=== PATIENT | female | born 1955 | race Two or more races ===

== ENCOUNTER 2017-08-14 09:43 | Emergency (ER) | payer BC, OTHER ==
[2017-08-14 10:18] VITALS: BP 135/84
--- NOTE | 2017-08-14 10:47 | UC ---
Respiratory Complaint HPI - HPI Summary HPI Summary: chest congestion x 2 days cough, nasal congestion no fever, no sob - History of Current Complaint Chief Complaint: UCRespiratory Stated Complaint: CONGESTION COUGH Time Seen by Provider: 08/14/17 10:35 Hx Obtained From: Patient Onset/Duration: Gradual Onset, Lasting Days - 2, Still Present Timing: Constant Severity Initially: Moderate Severity Currently: Moderate Character: Cough: Nonproductive Aggravating Factors: Deep Breaths Alleviating Factors: Nothing Associated Signs And Symptoms: Positive: URI, Nasal Congestion. Negative: Sinus Discomfort - Allergies/Home Medications Allergies/Adverse Reactions: Allergies Allergy/AdvReac Type Severity Reaction Status Date / Time Latex Allergy Itching Verified 08/14/17 10:18 Ciprofloxacin [From Cipro] AdvReac Diarrhea, Verified 08/14/17 10:18 Weakness Codeine AdvReac Nausea Verified 08/14/17 10:18 Home Medications: Home Medications Bergamot Oil 1 oil XX DAILY 08/14/17 [History Confirmed 08/14/17] Red Yeast Rice Extract [Red Yeast Rice] 300 mg PO DAILY 08/14/17 [History Confirmed 08/14/17] Vitamin B Complex CAP* [B Complex CAP*] 1 cap PO DAILY 08/14/17 [History Confirmed 08/14/17] PMH/Surg Hx/FS Hx/Imm Hx Cardiovascular History: Hypertension - Surgical History Surgical History: Yes Surgery Procedure, Year, and Place: Dental/Gum Surgery. Urethral Blockage Surgery - Family History Known Family History: Negative: Diabetes - Social History Alcohol Use: None Substance Use Type: None Smoking Status (MU): Never Smoked Tobacco Review of Systems Constitutional: Negative Skin: Negative Eyes: Negative ENT: Negative Respiratory: Cough Is Patient Immunocompromised?: No All Other Systems Reviewed And Are Negative: Yes Physical Exam Triage Information Reviewed: Yes Appearance: Well-Appearing, No Pain Distress, Well-Nourished Vital Signs: Initial Vital Signs Temp 98.5 F 08/14/17 10:10 Pulse 55 08/14/17 10:10 Resp 16 08/14/17 10:10 BP 135/84 08/14/17 10:10 Pulse Ox 99 08/14/17 10:10 Vital Signs Reviewed: Yes Eye Exam: Normal Eyes: Positive: Conjunctiva Clear ENT: Positive: Normal ENT inspection, Hearing grossly normal, Pharynx normal Neck: Positive: Supple, Nontender, No Lymphadenopathy Respiratory: Positive: Chest non-tender, Lungs clear, Normal breath sounds Cardiovascular: Positive: RRR, No Murmur, Pulses Normal Skin Exam: Normal UC Diagnostic Evaluation - Laboratory O2 Sat by Pulse Oximetry: 99 Respiratory Course/Dx - Differential Dx/Diagnosis Provider Diagnoses: uri Discharge - Discharge Plan Condition: Stable Disposition: HOME Patient Education Materials: Upper Respiratory Infection (ED) Referrals: Khloe Briceño MD [Primary Care Provider] - If Needed Additional Instructions: Viral illness no bacterial infection no need for antibiotic at this time
== END 2017-08-14 10:56 | disposition home or self-care (01) ==
LOC: UCCORT 09:43
DX: J06.9 Acute upper respiratory infection, unspecified (principal); I10 Essential (primary) hypertension; Z88.5 Allergy status to narcotic agent; Z88.1 Allergy status to other antibiotic agents; Z91.040 Latex allergy status
CPT/HCPCS: 99211; G0463

== ENCOUNTER 2018-04-06 08:32 | Day surgery (SDC) | payer BC ==
[~2018-04-06 08:32] MED LIST: Buffered Lidocaine 0.9% SYRIN* 5 ML/SYR SYRINGE INTRADERM ONE; Dexamethasone IV* 4 MG/ML 1 ML (4 MG) IV SLOW PU ONE; Famotidine IV* 10 MG/ML 2 ML (20 mg) IV ONE; Ondansetron INJ* 2 MG/ML VIAL ONE
[2018-04-06] MEDS ORDERED: Dexamethasone IV* 4 MG/ML 1 ML (4 MG) ONE (09:04)
[2018-04-06] MEDS ORDERED: Famotidine IV* 10 MG/ML 2 ML (20 mg) ONE (09:04)
[2018-04-06] MEDS ORDERED: Lidocain 1% EPI 1:100,000 * 30 ML MDV ONE (10:12)
[2018-04-06] MEDS ORDERED: Lidocaine 2% PF * 5 ML VIAL ONE (10:25)
[2018-04-06] MEDS ORDERED: Propofol* 10 MG/ML 20 ML BTL IV PUSH ONE (10:25)
[2018-04-06] MEDS ORDERED: Bacitracin OINTMENT* 0.5% 0.5 oz TUBE ONE (10:37)
[2018-04-06] MEDS ORDERED: Ondansetron INJ* 2 MG/ML VIAL ONE ×2 (11:01→12:01)
[2018-04-06] MEDS ORDERED: Naloxone* 0.4 MG/ML 1 ML VIAL IV PRN (11:15)
[2018-04-06] MEDS ORDERED: Acetaminophen TAB* 325 MG ONE (11:43)
[2018-04-06 11:51] VITALS: BP 158/94
[2018-04-06] MEDS ORDERED: Phenylephrine IV* 40 MCG/ML 10 ML SYRINGE ONE (11:58)
--- NOTE | 2018-04-07 01:44 | OP ---
DATE OF OPERATION: 04/06/18 - SDS DATE OF : 51 SURGEON: Dr. Mauricio Gonzalez ASSISTANTS: None. ANESTHESIA: General. PRE-OP DIAGNOSIS: Right tympanic membrane perforation. POST-OP DIAGNOSIS: Right tympanic membrane perforation. OPERATIVE PROCEDURE: Right fat graft myringoplasty. ESTIMATED BLOOD LOSS: Negligible. FINDINGS: Small posterior marginal perforation of the right tympanic membrane. INDICATION: This is a 63-year-old woman who has had chronic right ear and right facial complaints of pressure and discomfort. She has a small marginal perforation of the right tympanic membrane of unclear etiology, but longstanding duration. The decision was made to proceed with attempt at closure to see if this might give her some symptomatic relief. DESCRIPTION OF PROCEDURE: The patient was brought to the operating room on . General anesthesia was induced and LMA was placed. The patient's right ear lobe was prepped with alcohol and infiltrated with 0.5 cc of 1% lidocaine with epinephrine. The right ear was then prepped with Betadine and the patient was draped sterilely and the time-out was performed. The posterior aspect of the right ear lobe was incised with 15-blade. A small piece of fat was then harvested and set aside and kept moist in saline. The incision was then closed with 5-0 fast absorbing gut. The ear canal was then examined under the microscope. The edges of the perforation were freshened with a curved pick and free suction. The fat graft was then placed. There was a nice tight fit and the patient was then returned to care of the anesthesiologist. She was extubated and delivered to the PACU in stable condition. [id number]/[id number] #: [id number] MTDD
== END 2018-04-06 12:11 | disposition home or self-care (01) ==
LOC: OR 08:32
PROVIDERS: ATTEND Otolaryngology
DX: H72.2X1 Other marginal perforations of tympanic membrane, right ear (principal); I10 Essential (primary) hypertension; K21.9 Gastro-esophageal reflux disease without esophagitis; M19.90 Unspecified osteoarthritis, unspecified site; F41.9 Anxiety disorder, unspecified; I38 Endocarditis, valve unspecified
CPT/HCPCS: A9270-GY; J1100; J2405; J2704

== ENCOUNTER 2019-02-23 16:26 | Emergency (ER) | payer BC, OTHER ==
[2019-02-23 17:11] VITALS: BP 174/96
--- NOTE | 2019-02-23 17:22 | UC ---
Respiratory Complaint HPI - HPI Summary HPI Summary: Cough at night, runny nose 02/01/19 resolved about one week later. New cough 02/21; pt family members have bronchitis. On 01/21/19 PCP gave pt Levaquin 500 mg daily #10 to take prn, but pt did not take. Thoracic back pain today, fatigue, dizziness, lightheadedness. - History of Current Complaint Chief Complaint: UCRespiratory Stated Complaint: COUGH,EARS Time Seen by Provider: 02/23/19 16:50 Hx Obtained From: Patient ?: No Onset/Duration: Sudden Onset, Lasting Weeks - 2 Timing: Constant Severity Initially: Mild Severity Currently: Moderate Pain Intensity: 2 Character: Cough: Nonproductive Aggravating Factors: Deep Breaths Alleviating Factors: Nothing Associated Signs And Symptoms: Positive: Dyspnea, Wheezing, Nasal Congestion - Allergies/Home Medications Allergies/Adverse Reactions: Allergies Allergy/AdvReac Type Severity Reaction Status Date / Time amoxicillin Allergy Severe Diarrhea, Verified 02/23/19 16:48 stomach pain, high BP azithromycin Allergy Severe Diarrhea, Verified 02/23/19 16:48 stomach pain, high blood pressure ciprofloxacin [From Cipro] Allergy Severe diarrhea, Verified 02/23/19 16:48 weakness, nausea diphenhydramine Allergy Severe Agitation Verified 02/23/19 16:46 [From Benadryl] Perfume [Fragrance] Allergy Severe MIGRAINES Verified 02/23/19 16:46 codeine Allergy Intermediate Nausea Verified 02/23/19 16:46 latex Allergy Intermediate Itching Verified 02/23/19 16:46 GARLIC, ONION Allergy Severe acid Uncoded 02/23/19 16:46 reflux, bloating, high blood pressure PETROLEUM Allergy Severe MIGRAINE Uncoded 02/23/19 16:46 SMOKE Allergy Severe MIGRAINE Uncoded 02/23/19 16:46 Home Medications: Home Medications Aulander-3 Fatty Acids (Nf) [Fish Oil (NF)] 1,000 mg PO DAILY 02/23/19 [History Confirmed 02/23/19] Triamterene/HCTZ 37.5-25 MG* [Dyazide CAP*] 1 cap PO DAILY 02/23/19 [History Confirmed 02/23/19] PMH/Surg Hx/FS Hx/Imm Hx Previously Healthy: Yes - Surgical History Surgical History: Yes Surgery Procedure, Year, and Place: Dental/Gum Surgery. Urethral Blockage Surgery. 2016-COLONOSCOPY AND ENDOSCOPY- [facility] - WITH ANESTHESIA - Family History Known Family History: Negative: Diabetes - Social History Alcohol Use: None Substance Use Type: None Smoking Status (MU): Never Smoked Tobacco Have You Smoked in the Last Year: No Review of Systems All Other Systems Reviewed And Are Negative: Yes Constitutional: Positive: Fatigue ENT: Positive: Sore Throat, Ear Ache, Sinus Congestion Respiratory: Positive: Shortness Of Breath, Cough Is Patient Immunocompromised?: No Physical Exam Triage Information Reviewed: Yes Appearance: No Pain Distress, Well-Nourished, Ill-Appearing Vital Signs: Initial Vital Signs Temp 98 F 02/23/19 17:02 Pulse 67 02/23/19 17:02 Resp 18 02/23/19 17:02 BP 174/96 02/23/19 17:02 Pulse Ox 100 02/23/19 17:02 Vital Signs Reviewed: Yes Eye Exam: Normal ENT: Positive: TM bulging Dental Exam: Normal Neck exam: Normal Respiratory: Positive: Chest non-tender, Decreased breath sounds - RLL, Wheezing , Inspiration Cardiovascular Exam: Normal Cardiovascular: Positive: RRR, No Murmur, Pulses Normal Abdominal Exam: Normal Bowel Sounds: Positive: Present Musculoskeletal Exam: Normal Neurological Exam: Normal Psychological Exam: Normal Skin Exam: Normal Respiratory Course/Dx - Course Course Of Treatment: hx obtained, exam performed, meds reviewed, chest xray was negative and neb treatment given, treated for bronchitis - Differential Dx/Diagnosis Differential Diagnosis/HQI/PQRI: Bronchitis, Sinusitis Provider Diagnosis: Bronchitis Discharge - Sign-Out/Discharge Documenting (check all that apply): Patient Departure All imaging exams completed and their final reports reviewed: Yes - Discharge Plan Condition: Stable Disposition: HOME Patient Education Materials: Acute Bronchitis (ED) Referrals: Khloe Briceño MD [Primary Care Provider] - - Billing Disposition and Condition Condition: STABLE Disposition: Home
[2019-02-23] MEDS ORDERED: Albuterol/Ipratropium NEB.SOL* Albuterol 2.5 MG/Ipratropium 0.5 MG 3 ML INH ONE (17:23)
[2019-02-23] MEDS ORDERED: Benzonatate CAP* 100 MG PO ONE (18:01)
== END 2019-02-23 18:13 | disposition home or self-care (01) ==
LOC: UCCORT 16:26
DX: J40 Bronchitis, not specified as acute or chronic (principal); Z88.0 Allergy status to penicillin; Z88.1 Allergy status to other antibiotic agents
CPT/HCPCS: 71046; 99212; A9270-GY; G0463